=== PATIENT | female | born 1940 | race Caucasian/White ===

== ENCOUNTER 2017-05-04 09:29 | Emergency (ER) | payer MEDICARE, BC ==
[2017-05-04 09:37] VITALS: BP 172/74; PULSE 74; O2SAT 97
[2017-05-04] MEDS ORDERED: XYLOCAINE 1% HCL 20 ML MDV IJ ONE (09:42)
[2017-05-04] MEDS ORDERED: Adacel Vial IM ONE ×2 (09:42→09:48)
[2017-05-04] MEDS ORDERED: BACIGUENT PACKET TP ONE (09:42)
[2017-05-04] MEDS ORDERED: BACIGUENT PACKET ONE (09:47)
[2017-05-04] MEDS ORDERED: XYLOCAINE 1% HCL 20 ML MDV ONE (09:47)
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
--- NOTE | 2017-05-04 11:35 | XRAY ---
Exam: 3 view right third finger exam from 05/04/2017. Comparison: None. Indication: Shut third finger in garage door. Findings: AP, oblique, and lateral radiographs of the right third finger were obtained. I see a mildly comminuted fracture of the tuft of the distal phalanx of the right third finger without significant displacement or malalignment. Surrounding soft tissue swelling is evident. No radiopaque soft tissue foreign body is seen. Some mild osteoarthritic changes are seen affecting both the DIP and PIP joints of the right third finger. Impression: 1. Mildly comminuted, nondisplaced fracture of the tuft of the distal phalanx of the right third finger. Surrounding soft tissue swelling is evident. No radiopaque soft tissue foreign body is seen. 2. Mild osteoarthritic changes are seen of both the DIP and PIP joints of the right third finger. There is also some mild focal soft tissue prominence overlying the radial aspect of the PIP joint. Incidentally, there is a tiny curvilinear calcific density at this latter level on the AP image, but this does not represent the site of injury. Therefore, this is presumably old.
== END 2017-05-04 10:50 | disposition home or self-care (01) ==
LOC: ED 09:29
PROC: 0HQFXZZ Repair Right Hand Skin, External Approach (ICD-10-PCS; principal; 2017-05-04)
DX: S61.212A Laceration without foreign body of right middle finger without damage to nail, initial encounter (principal); S62.632A Displaced fracture of distal phalanx of right middle finger, initial encounter for closed fracture; X58.XXXA Exposure to other specified factors, initial encounter
CPT/HCPCS: 12002; 73140; 90471; 90715; 96372; 99283; 99284; A9270-GY

== ENCOUNTER 2024-02-26 15:53 | Emergency (ER) | payer MEDICARE, BC ==
[2024-02-26] MEDS ORDERED: Sodium Chloride 0.9% 1000 ML 1,000 ML ONE (16:16)
[2024-02-26] MEDS ORDERED: Zofran 4 MG/2 ML VIAL ONE (16:16)
[2024-02-26] MEDS: Zofran 4 MG/2 ML VIAL IV ONE (16:19)
[2024-02-26] MEDS: Sodium Chloride 0.9% 1000 ML 1,000 ML IV STA (16:19)
[2024-02-26] MEDS ORDERED: SUBLIMAZE 100 MCG/2 ML ONE (16:23)
[2024-02-26] MEDS: SUBLIMAZE 100 MCG/2 ML IV ONE (16:25)
[2024-02-26 16:43] LABS: Absolute Neutrophil Ct (ANC) 16.57 x10^3/uL (1.4-6.9); BASOPHIL % 0.2 % (0.0-0.4); Basophil (Absolute #) 0.03 x10^3/uL (0-0.4); Eosinophil % 0.3 % (0.00-5.0); Eosinophil (Absolute #) 0.05 x10^3/uL (0-0.5); Hematocrit 49.7 % (35-47); Hemoglobin 16.7 g/dL (12.0-16.0); IMMATURE GRAN % 0.5 % (0.00-0.4); Lymphocyte (Absolute #) 1.43 x10^3/uL (1.0-4.6); Lymphocytes % 7.4 % (24.0-44.0); Mean Cell Volume 88.9 fL (78-100); Mean Corpuscular Hemoglobin 29.9 pg (26-32); Mean Corpuscular Hgb Concent. 33.6 g/dL (32-36); Mean Platelet Volume 9.9 fL (7.5-11.0); Monocyte (Absolute #) 1.08 x10^3/uL (0.0-1.3); Monocytes % 5.6 % (0.0-12.0); Platelet Count 191 x10^3/uL (150-450); Red Blood Count 5.59 x10^6/uL (4.1-5.4); Red Cell Distribution Width 11.9 % (11.5-14.0); White Blood Count 19.3 x10^3/uL (4.0-10.5)
--- NOTE | 2024-02-26 16:52 | XRAY ---
Indication: Chest pain. Comparison: None Portable chest demonstrates minimal left mid to lower lung subsegmental atelectasis/scarring and tiny right base calcified granuloma. Remaining heart and lungs unremarkable. Bony thorax intact with osteopenia, mild degenerative changes, and minimal dextroscoliosis. Impression: Nonacute chest with chronic features.
[2024-02-26 17:01] LABS: ALBUMIN 4.5 g/dL (3.5-5.0); ANION GAP 13.6 MEQ/L (5-15); BILIRUBIN,TOTAL 0.8 mg/dL (0.2-1.3); Calcium 9.8 mg/dL (8.4-10.2); Creatinine 1 0.61 mg/dL (0.52-1.04); EST GLOMERULAR FILTRATION RATE 89.8 ML/MIN; Potassium 3.5 mmol/L (3.5-5.1); Total Protein 7.6 g/dL (6.3-8.2)
--- NOTE | 2024-02-26 17:06 | ERPHSYRPT ---
- History of Present Illness Time Seen by Provider: 02/26/24 16:15 Historian: patient, family Patient Subjective Stated Complaint: C/O lower abdominal pain that started around 12noon today. Triage Nursing Assessment: Patient arrived by ambulance. She is diaphoretic. Alert and oriented. No SOB. ORO WNL. Patient holding her left lower abdomen; states it's her entire lower abdomen not just the left side. Physician History: Patient is a 89-year-old white female who presents with a complaint of lower abdominal pain today which started fairly suddenly at noon. She has had at least 4 episodes of severe nausea and vomiting. The pain does localize fairly well to the lower quadrant she also says she has not had a bowel movement in 4 days.Current medical care involves hypertension and hypothyroidism and diabetes. Activities at Onset: none Quality: cramping Abdominal Pain Onset Location: RLQ, LLQ Pain Radiation: no radiation Severity of Pain-Max: moderate Severity of Pain-Current: moderate Modifying Factors: Improves With: vomiting Associated Symptoms: nausea, vomiting Allergies/Adverse Reactions: No Known Drug Allergies Allergy (Verified 02/26/24 16:05) Home Medications: Amlodipine Besylate 5 mg [Norvasc 5 mg] 10 mg PO DAILY 02/26/24 [History] Carvedilol [Coreg ] See Rx Instructions .ROUTE .COMPLEX 02/26/24 [History] Insulin Degludec [Tresiba Flextouch U-200] 30 unit SQ DAILY 02/26/24 [History] Levothyroxine Sodium 88 Mcg [Synthroid 88 Mcg] 88 mcg PO DAILY 02/26/24 [History] Lisinopril/Hydrochlorothiazide [Lisinopril-Hctz 20-25 mg Tab] 1 tab PO DAILY 02/26/24 [History] Hx Tetanus, Diphtheria Vaccination/Date Given: Yes Hx Influenza Vaccination/Date Given: Yes Hx Pneumococcal Vaccination/Date Given: Yes Immunizations Up to Date: Yes Travel Risk - International Travel Have you traveled outside of the country in past 3 weeks: No - Emerging Infectious Disease Are you exhibiting symptoms associated with any current EIDs: Yes Symptoms: Abdominal Pain - Review of Systems Constitutional: No Fever, No Chills Eyes: No Symptoms Ears, Nose, & Throat: No Symptoms Respiratory: No Cough, No Dyspnea Cardiac: No Chest Pain, No Edema, No Syncope Abdominal/Gastrointestinal: Abdominal Pain, Nausea, Vomiting, No Diarrhea Genitourinary Symptoms: No Dysuria Musculoskeletal: No Back Pain, No Neck Pain Skin: No Rash Neurological: No Dizziness, No Focal Weakness, No Sensory Changes Psychological: No Symptoms Endocrine: No Symptoms All Other Systems: Reviewed and Negative - Past Medical History Pertinent Past Medical History: Yes Cardiac History: Congenital Heart Disease, High Cholesterol, Hypertension, Myocardial Infarction ([place]) Endocrine Medical History: Diabetes Type II 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 - Past Surgical History Past Surgical History: Yes Cardiac: Cardiac Catheterization, Cardiac Stent Gastrointestinal: Appendectomy Other Surgical History: "OVARIAN STUFF" - Social History Smoking Status: Never smoker Exposure to second hand smoke: No Drug Use: none Patient Lives Alone: No - Social Determinants of Health Will the patient participate in the screening: Yes Do you worry about a steady place to live?: No Do you have any problems with any of the following?: No known problems In the past 12 months,have you had to go without utilities?: No Transportation Issues: No Has anyone in your support network made you feel unsafe?: No Have you or anyone in your house had to go without enough: No - Nursing Vital Signs Nursing Vital Signs: Initial Vital Signs Pulse Rate 65 02/26/24 15:57 Respiratory Rate 23 02/26/24 15:57 Blood Pressure 123/62 02/26/24 15:57 O2 Sat by Pulse Oximetry 98 02/26/24 15:57 Pain Scale Pain Intensity 0 - Physical Exam General Appearance: moderate distress, alert Eye Exam: PERRL/EOMI, eyes nml inspection Ears, Nose, Throat Exam: normal ENT inspection, pharynx normal, moist mucous membranes Neck Exam: normal inspection, non-tender, supple, full range of motion Respiratory Exam: normal breath sounds, lungs clear, No respiratory distress Cardiovascular Exam: regular rate/rhythm, normal heart sounds Gastrointestinal/Abdomen Exam: soft, tenderness, guarding, rebound, No mass Back Exam: normal inspection, normal range of motion, No CVA tenderness, No vertebral tenderness Extremity Exam: normal inspection, normal range of motion, pelvis stable Neurologic Exam: alert, oriented x 3, cooperative, normal mood/affect, nml cerebellar function, sensation nml, No motor deficits Skin Exam: normal color, warm, dry SpO2: 98 - Course Nursing assessment & vital signs reviewed: Yes EKG Interpreted by Me: RATE (64), Sinus Rhythm, Other (Poor R wave progression) - Radiology Exams Chest X-ray Interpretation: Reviewed by me - CT Exams Abdomen/Pelvis CT Interpretation: Other (And incidental finding of lump in right breast. Diagnosed as left colitis) Ordered Tests: Active Orders 24 hr Category Date Time Status EKG-ER Only STAT Care 02/26/24 16:09 Active IV Insertion STAT Care 02/26/24 16:09 Active NPO (ED) STAT Care 02/26/24 16:09 Active ABDOMEN AND PELVIS W CONTRAST [CT] Stat Exams 02/26/24 16:10 Taken CHEST 1 VIEW (PORTABLE) Stat Exams 02/26/24 16:10 Completed CBC W DIFF Stat Lab 02/26/24 16:35 Completed CMP Stat Lab 02/26/24 16:35 Completed CULTURE,URINE Stat Lab 02/26/24 18:09 Received LIPASE Stat Lab 02/26/24 16:35 Completed Lactic Acid Stat Lab 02/26/24 16:20 Completed PROTIME WITH INR Stat Lab 02/26/24 16:35 Completed TROPONIN Q4H Lab 02/26/24 16:35 Completed TROPONIN Q4H Lab 02/26/24 20:15 Ordered TROPONIN Q4H Lab 02/27/24 00:15 Ordered UA W/RFX UR CULTURE Stat Lab 02/26/24 18:09 Completed Medication Summary Discontinued Medications Generic Name Dose Route Start Last Admin Trade Name Freq PRN Reason Stop Dose Admin Fentanyl Citrate 50 mcg 02/26/24 16:09 02/26/24 16:25 Fentanyl Citrate 100 Mcg/2 Ml* Vial IV 02/26/24 16:10 50 mcg STAT ONE Administration Fentanyl Citrate Confirm 02/26/24 16:23 Fentanyl Citrate 100 Mcg/2 Ml* Vial Administered 02/26/24 16:24 Dose 100 mcg .ROUTE .STK-MED ONE Sodium Chloride 1,000 mls @ 999 mls/hr 02/26/24 16:09 02/26/24 17:21 Sodium Chloride 0.9% 1000 Ml IV 02/26/24 17:09 Infused .Q1H1M STA Infusion Sodium Chloride Confirm 02/26/24 16:16 Sodium Chloride 0.9% 1000 Ml Administered 02/26/24 16:17 Dose 1,000 mls @ ud .ROUTE .STK-MED ONE Ondansetron HCl 4 mg 02/26/24 16:09 02/26/24 16:19 Ondansetron Hcl 4 Mg/2 Ml Vial IV 02/26/24 16:10 4 mg STAT ONE Administration Ondansetron HCl Confirm 02/26/24 16:16 Ondansetron Hcl 4 Mg/2 Ml Vial Administered 02/26/24 16:17 Dose 4 mg .ROUTE .[email or web address] ONE Lab/Rad Data: Laboratory Result Diagrams 02/26/24 16:35 02/26/24 16:35 Laboratory Results 02/26/24 02/26/24 02/26/24 Range/Units 18:09 16:35 16:35 WBC (4.0-10.5) x10^3/uL RBC (4.1-5.4) x10^6/uL Hgb (12.0-16.0) g/dL Hct (35-47) % MCV (78-100) fL MCH (26-32) pg MCHC (32-36) g/dL RDW (11.5-14.0) % Plt Count (150-450) x10^3/uL MPV (7.5-11.0) fL Gran % (36.0-66.0) % Immature Gran % (Auto) (0.00-0.4) % Nucleat RBC Rel Count (0.00-0.1) % Eos # (Auto) (0-0.5) x10^3/uL Immature Gran # (Auto) (0.00-0.03) x10^3u/L Absolute Lymphs (auto) (1.0-4.6) x10^3/uL Absolute Monos (auto) (0.0-1.3) x10^3/uL Absolute Nucleated RBC (0.00-0.01) x10^3u/L Lymphocytes % (24.0-44.0) % Monocytes % (0.0-12.0) % Eosinophils % (0.00-5.0) % Basophils % (0.0-0.4) % Absolute Granulocytes (1.4-6.9) x10^3/uL Basophils # (0-0.4) x10^3/uL PT 10.7 (9.4-12.5) SECONDS INR 0.98 (0.8-3.0) Sodium (135-145) mmol/L Potassium (3.5-5.1) mmol/L Chloride (98-107) mmol/L Carbon Dioxide (22-30) mmol/L Anion Gap (5-15) MEQ/L BUN (7-17) mg/dL Creatinine (0.52-1.04) mg/dL Estimated GFR ML/MIN Glucose (74-106) mg/dL Lactic Acid (0.4-2.0) Calcium (8.4-10.2) mg/dL Total Bilirubin (0.2-1.3) mg/dL AST (14-36) U/L ALT (0-35) U/L Alkaline Phosphatase (38-126) U/L Troponin I < 0.012 (0.000-0.033) ng/mL Serum Total Protein (6.3-8.2) g/dL Albumin (3.5-5.0) g/dL Lipase (23-300) U/L Urine Color Yellow (Yellow) Urine Appearance Clear (Clear) Urine pH 7.0 (4.6-8.0) Ur Specific Ramona 1.020 (1.005-1.030) Urine Protein Negative (Negative) Urine Glucose (UA) Negative (Negative) mg/dL Urine Ketones Negative (Negative) Urine Blood Negative (Negative) Urine Nitrite Negative (Negative) Urine Bilirubin Negative (Negative) Urine Urobilinogen 1.0 A (0.2) mg/dL Ur Leukocyte Esterase Small A (Negative) U Hyaline Cast (Auto) NONE SEEN (0-2) /LPF Urine Microscopic RBC 0-2 (0-5) /HPF Urine Microscopic WBC 11-20 A (0-5) /HPF Ur Epithelial Cells None Seen (None Seen) /HPF Urine Bacteria Few A (None Seen) /HPF Urine Culture Reflexed YES (NO) 02/26/24 02/26/24 02/26/24 Range/Units 16:35 16:35 16:20 WBC 19.3 H (4.0-10.5) x10^3/uL RBC 5.59 H (4.1-5.4) x10^6/uL Hgb 16.7 H (12.0-16.0) g/dL Hct 49.7 H (35-47) % MCV 88.9 (78-100) fL MCH 29.9 (26-32) pg MCHC 33.6 (32-36) g/dL RDW 11.9 (11.5-14.0) % Plt Count 191 (150-450) x10^3/uL MPV 9.9 (7.5-11.0) fL Gran % 86.0 H (36.0-66.0) % Immature Gran % (Auto) 0.5 H (0.00-0.4) % Nucleat RBC Rel Count 0.0 (0.00-0.1) % Eos # (Auto) 0.05 (0-0.5) x10^3/uL Immature Gran # (Auto) 0.10 H (0.00-0.03) x10^3u/L Absolute Lymphs (auto) 1.43 (1.0-4.6) x10^3/uL Absolute Monos (auto) 1.08 (0.0-1.3) x10^3/uL Absolute Nucleated RBC 0.00 (0.00-0.01) x10^3u/L Lymphocytes % 7.4 L (24.0-44.0) % Monocytes % 5.6 (0.0-12.0) % Eosinophils % 0.3 (0.00-5.0) % Basophils % 0.2 (0.0-0.4) % Absolute Granulocytes 16.57 H (1.4-6.9) x10^3/uL Basophils # 0.03 (0-0.4) x10^3/uL PT (9.4-12.5) SECONDS INR (0.8-3.0) Sodium 141 (135-145) mmol/L Potassium 3.5 (3.5-5.1) mmol/L Chloride 104 (98-107) mmol/L Carbon Dioxide 26 (22-30) mmol/L Anion Gap 13.6 (5-15) MEQ/L BUN 16 (7-17) mg/dL Creatinine 0.61 (0.52-1.04) mg/dL Estimated GFR 89.8 ML/MIN Glucose 183 H (74-106) mg/dL Lactic Acid 1.6 (0.4-2.0) Calcium 9.8 (8.4-10.2) mg/dL Total Bilirubin 0.80 (0.2-1.3) mg/dL AST 25 (14-36) U/L ALT 19 (0-35) U/L Alkaline Phosphatase 71 (38-126) U/L Troponin I (0.000-0.033) ng/mL Serum Total Protein 7.6 (6.3-8.2) g/dL Albumin 4.5 (3.5-5.0) g/dL Lipase 228 (23-300) U/L Urine Color (Yellow) Urine Appearance (Clear) Urine pH (4.6-8.0) Ur Specific Ramona (1.005-1.030) Urine Protein (Negative) Urine Glucose (UA) (Negative) mg/dL Urine Ketones (Negative) Urine Blood (Negative) Urine Nitrite (Negative) Urine Bilirubin (Negative) Urine Urobilinogen (0.2) mg/dL Ur Leukocyte Esterase (Negative) U Hyaline Cast (Auto) (0-2) /LPF Urine Microscopic RBC (0-5) /HPF Urine Microscopic WBC (0-5) /HPF Ur Epithelial Cells (None Seen) /HPF Urine Bacteria (None Seen) /HPF Urine Culture Reflexed (NO) - Progress Progress: improved Medical Desision Making - Diagnostic Testing Diagnostic test were ordered, analyzed, and reviewed by me: Yes Radiological Interpretation: Reviewed by me - Risk of complications Low Risk: Low risk of morbidity from additional dx testing or treatment - Departure Departure Disposition: Home Clinical Impression: Colitis Condition: Stable Critical Care Time: No Referrals: HADLEY ROCHA [Primary Care Provider] - Follow up/PCP as directed Instructions: Colitis, Inflammatory Bowel Disease ([place]) Additional Instructions: Clear liquid diet for 48 hours. Prescriptions: Ondansetron ODT 4 MG [Zofran Odt 4 mg] 4 mg PO Q6H PRN PRN #10 tablet PRN Reason: Vomiting Metronidazole 500 mg [Flagyl 500 MG] 500 mg PO BID 10 Days #20 tablet
[2024-02-26 17:11] LABS: INR 0.98 (0.8-3.0); PROTIME 10.7 SECONDS (9.4-12.5)
[2024-02-26 18:27] LABS: Appearance Clear (Clear); Bacteria Few /HPF (None Seen); Bilirubin Negative (Negative); Blood Negative (Negative); Epithelial Cells None Seen /HPF (None Seen); Glucose, Urine Negative (Negative); Hyaline Casts NONE SEEN /LPF (0-2); Ketones Negative (Negative); Leukocyte Esterase Small (Negative); Nitrite Negative (Negative); Protein,Urine Dip Negative (Negative); RBC 0-2 /HPF (0-5)
[2024-02-26 18:31] LABS: ADD URINE CULTURE? YES (NO)
[2024-02-26 19:05] VITALS: O2SAT 98
[2024-02-26 19:06] VITALS: BP 123/95; PULSE 79; RESP 17
--- NOTE | 2024-02-27 08:37 | XRAY ---
Indication: Pain. Multiple contiguous axial images obtained through the abdomen and pelvis using 80 cc Isovue 370 contrast. Comparison: None Lung bases clear with incidental right base calcified granuloma. Heart is not enlarged. Small hiatal hernia. Visualized distal esophagus is mildly fluid distended favoring GERD. Incidental incompletely visualized 1.7 x 2.7 cm right breast mass. Noncontrasted stomach and bowel loops appear nonobstructed. Appendectomy reported. There is moderate diffuse scattered colonic fecal debris throughout and scattered sigmoid diverticulosis. Distal transverse and descending colon demonstrates moderate circumduction wall thickening with pericolonic stranding favoring colitis. No free fluid/air. Previous cholecystectomy and hysterectomy. Both kidneys enhance and excrete with multiple bilateral renal cysts, largest right kidney measuring 2.5 cm. Peripheral right lobe liver demonstrates 5 mm cyst. Remaining liver, pancreas, spleen, adrenal glands, kidneys, ureters, and bladder are unremarkable. Moderate scattered aortoiliac calcifications are noted AAA or pathologic retroperitoneal lymphadenopathy. Osseous structures intact with osteopenia, moderate multilevel thoracolumbar degenerative spondylosis, 1 cm anterior spondylolisthesis L4 on L5, and mild levorotoscoliosis centered at L2. Tiny fatty left inguinal hernia. Impression: 1. CT findings favoring colitis involving distal transverse and descending colon. No complications. 2. Small hiatal hernia with GERD. 3. Moderate diffuse fecal stasis. 4. Incompletely visualized right breast mass. Mammography may yield further information. 5. Chronic findings including sigmoid diverticulosis, bilateral renal cysts, hepatic cyst, arteriosclerotic disease, fatty left inguinal hernia, chronic bony findings, and old granulomatous disease.
== END 2024-02-26 19:17 | disposition home or self-care (01) ==
LOC: ED 15:53
DX: K52.9 Noninfective gastroenteritis and colitis, unspecified (principal); R11.2 Nausea with vomiting, unspecified; R10.30 Lower abdominal pain, unspecified; I10 Essential (primary) hypertension; E11.9 Type 2 diabetes mellitus without complications; E78.5 Hyperlipidemia, unspecified; Z79.4 Long term (current) use of insulin; Z79.899 Other long term (current) drug therapy
CPT/HCPCS: 36000; 36415; 71045; 74177; 80053; 81001; 83605; 83690; 84484; 85025; 85610; 87077; 87086; 87186; 93005; 96374; 96375; 99284; J2405; J3010

== ENCOUNTER 2024-11-04 13:28 | Emergency (ER) | payer MEDICARE, BC ==
[2024-11-04 13:38] VITALS: TEMP 97.5; O2SAT 97
[2024-11-04 14:10] LABS: Appearance Clear (Clear); Bacteria None Seen /HPF (None Seen); Bilirubin Small (Negative); Blood Negative (Negative); Epithelial Cells None Seen /HPF (None Seen); Glucose, Urine Negative (Negative); Ketones Trace (Negative); Leukocyte Esterase Moderate (Negative); Nitrite Negative (Negative); Protein,Urine Dip Trace (Negative); RBC 0-2 /HPF (0-5); Specific Gravity 1.015 (1.005-1.030)
[2024-11-04 14:17] LABS: Absolute Neutrophil Ct (ANC) 14.12 x10^3/uL (1.56-6.13); BASOPHIL % 0.1 % (0.1-1.2); Basophil (Absolute #) 0.02 x10^3/uL (0.01-0.08); Eosinophil % 0.2 % (0.7-5.8); Eosinophil (Absolute #) 0.03 x10^3/uL (0.04-0.36); Hematocrit 46.1 % (34.1-44.9); Hemoglobin 15.6 g/dL (11.2-15.7); IMMATURE GRAN # 0.08 x10^3u/L (0.001-0.031); IMMATURE GRAN % 0.5 % (0.001-0.429); Lymphocyte (Absolute #) 1.13 x10^3/uL (1.18-3.74); Lymphocytes % 6.9 % (19.3-51.7); Mean Cell Volume 87.8 fL (79.4-94.8); Mean Corpuscular Hemoglobin 29.7 pg (25.6-32.2); Mean Corpuscular Hgb Concent. 33.8 g/dL (32.2-35.5); Monocyte (Absolute #) 0.98 x10^3/uL (0.24-0.86); Neutrophil % 86.3 % (34.0-71.1); Platelet Count 227 x10^3/uL (182-369); Red Blood Count 5.25 x10^6/uL (3.93-5.22); Red Cell Distribution Width 12.7 % (11.7-14.4); White Blood Count 16.4 x10^3/uL (3.98-10.04)
[2024-11-04 14:37] LABS: ALBUMIN 4.3 g/dL (3.5-5.0); ANION GAP 9.6 MEQ/L (5-15); BILIRUBIN,TOTAL 0.6 mg/dL (0.2-1.3); Calcium 9.3 mg/dL (8.4-10.2); Creatinine 1 0.68 mg/dL (0.52-1.04); EST GLOMERULAR FILTRATION RATE 86.9 ML/MIN; Potassium 3.8 mmol/L (3.5-5.1); Total Protein 7.1 g/dL (6.3-8.2)
[2024-11-04] MEDS ORDERED: ROCEPHIN 1 GM / 100 ML NaCl 1 GM/100 ML IVPB IV ONE (16:18)
[2024-11-04] MEDS: ROCEPHIN 1 GM / 100 ML NaCl 1 GM/100 ML IVPB IV ONE (16:24)
--- NOTE | 2024-11-04 16:37 | XRAY ---
Indication: Abdomen pain. Multiple contiguous axial images obtained through the abdomen and pelvis using 80 cc Isovue 370 contrast. Comparison: February 26, 2024 Lung bases again demonstrates minimal dependent atelectasis and tiny right base calcified granuloma. No infiltrate or effusion. Heart not enlarged. Stable small hiatal hernia. Noncontrasted stomach and bowel loops appear nonobstructed. Again mild diffuse scattered colonic fecal debris, less than before. Descending colon again demonstrates minimal circumferential wall thickening with pericolonic stranding favoring colitis. No free fluid/air. Again incidental tiny right lobe hepatic cyst, multiple bilateral renal cysts, cholecystectomy, and hysterectomy. Remaining liver, pancreas, spleen, adrenal glands, kidneys, ureters, and bladder are unremarkable. There remains moderate scattered aortoiliac calcifications. No AAA or pathological retroperitoneal lymphadenopathy. Osseous structures intact again with osteopenia, moderate degenerative changes throughout the thoracolumbar spine, grade 1 L4 listhesis, and mild levoscoliosis. Stable tiny fatty left inguinal hernia. Impression: 1. Recurrent non-complicated mild descending colitis. 2. Again mild diffuse fecal stasis. 3. Chronic findings including hiatal hernia, bilateral renal cysts, hepatic cyst, arteriosclerotic disease, fatty left inguinal hernia, chronic bony findings, and old granulomatous disease.
[2024-11-04] MEDS ORDERED: FLAGYL 500 MG IVPB 500 MG/100 ML BAG IV ONE (17:44)
[2024-11-04] MEDS: FLAGYL 500 MG IVPB 500 MG/100 ML BAG IV STA (17:47)
--- NOTE | 2024-11-04 18:21 | ERPHSYRPT ---
- History of Present Illness Time Seen by Provider: 11/04/24 13:35 Source: patient Exam Limitations: clinical condition Patient Subjective Stated Complaint: Abdominal pain Triage Nursing Assessment: Patient brought into ED per EMS and transferred to bed with assist of 2. Patient A+O X 3. Patient's skin pink, warm and dry. Patient complains of abdominal pain that started this am 9/10. Patient states she is constipated and hasn't had a good BM in a few days. Abdomen soft and round with BS X 4. Timing/Duration: today Severity: mild Associated Symptoms: abdominal pain Allergies/Adverse Reactions: No Known Drug Allergies Allergy (Verified 11/04/24 13:34) Home Medications: Amlodipine Besylate 5 mg [Norvasc 5 mg] 10 mg PO DAILY 02/26/24 [History] Carvedilol [Coreg ] See Rx Instructions .ROUTE .COMPLEX 02/26/24 [History] Insulin Degludec [Tresiba Flextouch U-200] 30 unit SQ DAILY 02/26/24 [History] Levothyroxine Sodium 88 Mcg [Synthroid 88 Mcg] 88 mcg PO DAILY 02/26/24 [History] Lisinopril/Hydrochlorothiazide [Lisinopril-Hctz 20-25 mg Tab] 1 tab PO DAILY 02/26/24 [History] Hx Tetanus, Diphtheria Vaccination/Date Given: Yes Hx Influenza Vaccination/Date Given: No Hx Pneumococcal Vaccination/Date Given: Yes Immunizations Up to Date: Yes Travel Risk - International Travel Have you traveled outside of the country in past 3 weeks: No - Emerging Infectious Disease Are you exhibiting symptoms associated with any current EIDs: No Symptoms: Abdominal Pain - Review of Systems Constitutional: No Symptoms Eyes: No Symptoms Ears, Nose, & Throat: No Symptoms Respiratory: No Symptoms Cardiac: No Symptoms Abdominal/Gastrointestinal: Abdominal Pain Genitourinary Symptoms: No Symptoms Musculoskeletal: No Symptoms Skin: No Symptoms Neurological: No Symptoms Psychological: No Symptoms - Past Medical History Pertinent Past Medical History: Yes Cardiac History: Congenital Heart Disease, High Cholesterol, Hypertension, Myocardial Infarction ([place]) Endocrine Medical History: Diabetes Type II Other Medical History: Articulation Officer: Dr. Yoni Rocha - Past Surgical History Past Surgical History: Yes Cardiac: Cardiac Catheterization, Cardiac Stent Gastrointestinal: Appendectomy Other Surgical History: "OVARIAN STUFF" - Social History Smoking Status: Never smoker Exposure to second hand smoke: No Drug Use: none Patient Lives Alone: No - Social Determinants of Health Will the patient participate in the screening: Yes Do you worry about a steady place to live?: No Do you have any problems with any of the following?: No known problems In the past 12 months,have you had to go without utilities?: No Transportation Issues: No Has anyone in your support network made you feel unsafe?: No Have you or anyone in your house had to go without enough: No - Nursing Vital Signs Nursing Vital Signs: Initial Vital Signs Temperature 97.5 F 11/04/24 13:34 Pulse Rate 86 11/04/24 13:34 Respiratory Rate 20 11/04/24 13:34 Blood Pressure 114/64 11/04/24 13:34 O2 Sat by Pulse Oximetry 97 11/04/24 13:34 Pain Scale Pain Intensity 9 - Physical Exam General Appearance: no apparent distress Eye Exam: PERRL/EOMI Ears, Nose, Throat Exam: normal ENT inspection Respiratory Exam: normal breath sounds Cardiovascular Exam: regular rate/rhythm Gastrointestinal/Abdomen Exam: tenderness (Patient is tender in the lower quadrants) SpO2: 97 Ordered Tests: Active Orders 24 hr Category Date Time Status ABDOMEN AND PELVIS W CONTRAST [CT] Stat Exams 11/04/24 13:30 Completed CBC W DIFF Stat Lab 11/04/24 14:17 Completed CMP Stat Lab 11/04/24 14:17 Completed CULTURE,URINE Stat Lab 11/04/24 13:46 Received LIPASE Stat Lab 11/04/24 14:17 Completed UA W/RFX UR CULTURE Stat Lab 11/04/24 13:46 Completed Medication Summary Discontinued Medications Generic Name Dose Route Start Last Admin Trade Name Freq PRN Reason Stop Dose Admin Ceftriaxone Sodium 1 gm in 100 mls @ 200 mls/hr 11/04/24 15:33 11/04/24 17:07 Rocephin 1 Gm / 100 Ml Nacl IV 11/04/24 16:02 Infused STAT ONE Infusion Ceftriaxone Sodium Confirm 11/04/24 16:18 Rocephin 1 Gm / 100 Ml Nacl Administered 11/04/24 16:19 Dose 1 gm in 100 mls @ ud IV .STK-MED ONE Metronidazole 500 mg in 100 mls @ 200 mls/hr 11/04/24 17:01 11/04/24 17:47 Flagyl 500 Mg Ivpb IV 11/04/24 17:30 200 mls/hr STAT STA 200 mls/hr Administration Metronidazole Confirm 11/04/24 17:44 Flagyl 500 Mg Ivpb Administered 11/04/24 17:45 Dose 500 mg in 100 mls @ ud IV .K-MED ONE Lab/Rad Data: Laboratory Result Diagrams 11/04/24 14:17 11/04/24 14:17 Laboratory Results 11/04/24 11/04/24 11/04/24 Range/Units 14:17 14:17 13:46 WBC 16.4 H (3.98-10.04) x10^3/uL RBC 5.25 H (3.93-5.22) x10^6/uL Hgb 15.6 (11.2-15.7) g/dL Hct 46.1 H (34.1-44.9) % MCV 87.8 (79.4-94.8) fL MCH 29.7 (25.6-32.2) pg MCHC 33.8 (32.2-35.5) g/dL RDW 12.7 (11.7-14.4) % Plt Count 227 (182-369) x10^3/uL MPV 10.0 (9.4-12.3) fL Gran % 86.3 H (34.0-71.1) % Immature Gran % (Auto) 0.5 H (0.001-0.429) % Nucleat RBC Rel Count 0.0 (0.00-0.2) % Eos # (Auto) 0.03 L (0.04-0.36) x10^3/uL Immature Gran # (Auto) 0.08 H (0.001-0.031) x10^3u/L Absolute Lymphs (auto) 1.13 L (1.18-3.74) x10^3/uL Absolute Monos (auto) 0.98 H (0.24-0.86) x10^3/uL Absolute Nucleated RBC 0.00 (0.00-0.012) x10^3u/L Lymphocytes % 6.9 L (19.3-51.7) % Monocytes % 6.0 (4.7-12.5) % Eosinophils % 0.2 L (0.7-5.8) % Basophils % 0.1 (0.1-1.2) % Absolute Granulocytes 14.12 H (1.56-6.13) x10^3/uL Basophils # 0.02 (0.01-0.08) x10^3/uL Sodium 139 (135-145) mmol/L Potassium 3.8 (3.5-5.1) mmol/L Chloride 101 (98-107) mmol/L Carbon Dioxide 32 H (22-30) mmol/L Anion Gap 9.6 (5-15) MEQ/L BUN 17 (7-17) mg/dL Creatinine 0.68 (0.52-1.04) mg/dL Estimated GFR 86.9 ML/MIN Glucose 146 H (74-106) mg/dL Calcium 9.3 (8.4-10.2) mg/dL Total Bilirubin 0.60 (0.2-1.3) mg/dL AST 30 (14-36) U/L ALT 18 (0-35) U/L Alkaline Phosphatase 75 (38-126) U/L Serum Total Protein 7.1 (6.3-8.2) g/dL Albumin 4.3 (3.5-5.0) g/dL Lipase 104 (23-300) U/L Urine Color Dark Yellow A (Yellow) Urine Appearance Clear (Clear) Urine pH 7.0 (4.6-8.0) Ur Specific [place] 1.015 (1.005-1.030) Urine Protein Trace A (Negative) Urine Glucose (UA) Negative (Negative) mg/dL Urine Ketones Trace A (Negative) Urine Blood Negative (Negative) Urine Nitrite Negative (Negative) Urine Bilirubin Small A (Negative) Urine Urobilinogen 1.0 A (0.2) mg/dL Ur Leukocyte Esterase Moderate A (Negative) U Hyaline Cast (Auto) 3-5 A (0-2) /LPF Urine Microscopic RBC 0-2 (0-5) /HPF Urine Microscopic WBC 11-20 A (0-5) /HPF Ur Epithelial Cells None Seen (None Seen) /HPF Urine Bacteria None Seen (None Seen) /HPF Urine Culture Reflexed YES (NO) - Progress Progress Note: Patient was seen and evaluated for abdominal pain labs and CT was ordered CT s uggestive of colitis she was initially given Rocephin for treatment of UTI, then Flagyl was ordered. Patient was informed of the need for admission she is agreeable all risk and benefits explained she is of sound medical decision-making capability. Nursing staff was present during this conversation I was then notified by the nursing staff that patient does not want to be admitted and wanted to leave AMA with her daughter. I did not get a chance to talk to her before she left 11/04/24 18:14 Medical Desision Making - Discussion of managment Agreed on:: decision to admit - Departure Departure Disposition: AMA Clinical Impression: Colitis, Acute abdominal pain Condition: Stable Critical Care Time: No Referrals: HADLEY ROCHA [Primary Care Provider] - Follow up/PCP as directed Prescriptions: Ciprofloxacin [Cipro 500 MG] 500 mg PO BID #14 tablet Levofloxacin [Levaquin 500 MG Tablet] 500 mg PO DAILY #7 tablet
[2024-11-04 18:32] VITALS: BP 110/60; PULSE 80; RESP 19
== END 2024-11-04 18:35 | disposition left against medical advice (07) ==
LOC: ED 13:28
DX: K52.9 Noninfective gastroenteritis and colitis, unspecified (principal); R10.9 Unspecified abdominal pain; E78.5 Hyperlipidemia, unspecified; I10 Essential (primary) hypertension; E11.9 Type 2 diabetes mellitus without complications; Z79.4 Long term (current) use of insulin; Z79.899 Other long term (current) drug therapy
CPT/HCPCS: 36415; 74177; 80053; 81001; 83690; 85025; 87086; 96365; 96367; 99284; 99285; J0696

== ENCOUNTER 2025-01-11 12:57 | Emergency (ER) | payer MEDICARE, BC ==
[2025-01-11 13:19] VITALS: BP 114/76; PULSE 80; RESP 20; TEMP 97.9; O2SAT 95
--- NOTE | 2025-01-11 13:28 | ERPHSYRPT ---
- History of Present Illness Historian: patient Exam Limitations: no limitations Patient Subjective Stated Complaint: Constipation Triage Nursing Assessment: Patient brought into ED per EMS and transferred to bed with assist of 2. Patient A+O X 3. Patient's skin pink, warm and dry. Patient complains of constipation. Patient states she hadn't had a BM in 4 days and took Bisacodyl X 2 around 0500. Patient states she was sitting on toilet and having cramps. During triage patient requesting to go to restroom urgently and patient has large BM and states she feels a lot better. Abdomen soft and round with BS X 4. Physician History: Patient has been to the ER several times for constipation. She is having again. She has rectal pressure. She has not had a bowel movement for a while. She is having some pain in the rectum. She was on the toilet on April strain and had a near syncopal episode. She called EMS. They brought her in. She has a history of this it is not unusual for her. She took some Colace or something earlier in the morning. When she got here she had to go to the bathroom and immediately had a bowel movement and felt much better. Timing/Duration: day(s) (4) Allergies/Adverse Reactions: No Known Drug Allergies Allergy (Verified 01/11/25 13:01) Home Medications: Amlodipine Besylate 5 mg [Norvasc 5 mg] 10 mg PO DAILY 02/26/24 [History] Carvedilol [Coreg ] See Rx Instructions .ROUTE .COMPLEX 02/26/24 [History] Insulin Degludec [Tresiba Flextouch U-200] 30 unit SQ DAILY 02/26/24 [History] Levothyroxine Sodium 88 Mcg [Synthroid 88 Mcg] 88 mcg PO DAILY 02/26/24 [History] Lisinopril/Hydrochlorothiazide [Lisinopril-Hctz 20-25 mg Tab] 1 tab PO DAILY 02/26/24 [History] Hx Tetanus, Diphtheria Vaccination/Date Given: Yes Hx Influenza Vaccination/Date Given: No Hx Pneumococcal Vaccination/Date Given: Yes Immunizations Up to Date: Yes Travel Risk - International Travel Have you traveled outside of the country in past 3 weeks: No - Emerging Infectious Disease Are you exhibiting symptoms associated with any current EIDs: No Symptoms: Abdominal Pain - Review of Systems Constitutional: No Symptoms Eyes: No Symptoms Abdominal/Gastrointestinal: Constipation All Other Systems: Reviewed and Negative - Past Medical History Pertinent Past Medical History: Yes Cardiac History: Congenital Heart Disease, High Cholesterol, Hypertension, Myocardial Infarction ([place]) Endocrine Medical History: Diabetes Type II Other Medical History: Applied Statistician: Dr. Yoni Rocha - Past Surgical History Past Surgical History: Yes Cardiac: Cardiac Catheterization, Cardiac Stent Gastrointestinal: Appendectomy Other Surgical History: "OVARIAN STUFF" - Social History Smoking Status: Never smoker Exposure to second hand smoke: No Drug Use: none - Social Determinants of Health Will the patient participate in the screening: Yes Do you worry about a steady place to live?: No Do you have any problems with any of the following?: No known problems In the past 12 months,have you had to go without utilities?: No Transportation Issues: No Has anyone in your support network made you feel unsafe?: No Have you or anyone in your house had to go w/o enough food: No - Nursing Vital Signs Nursing Vital Signs: Initial Vital Signs Temperature 97.9 F 01/11/25 13:01 Pulse Rate 80 01/11/25 13:01 Respiratory Rate 20 01/11/25 13:01 Blood Pressure 114/76 01/11/25 13:01 O2 Sat by Pulse Oximetry 95 01/11/25 13:01 Pain Scale Pain Intensity 0 - Physical Exam General Appearance: no apparent distress Respiratory Exam: normal breath sounds Gastrointestinal/Abdomen Exam: soft, normal bowel sounds, No tenderness, No distention Neurologic Exam: alert, oriented x 3 Skin Exam: normal color, warm SpO2: 95 - Course Nursing assessment & vital signs reviewed: Yes - Progress Progress: improved Progress Note: 01/11/25 13:27 Patient had a bowel movement almost immediately after she got here. Her symptoms went away and she is feeling much better. No further workup is needed Medical Desision Making - Risk of complications Minimal Risk: Minimal risk of morbidity - Departure Departure Disposition: Home Clinical Impression: Constipation Condition: Stable Critical Care Time: No Referrals: HADLEY ROCHA [Primary Care Provider, INTERNAL MEDICINE] - Follow up/PCP as directed Instructions: Constipation, Adult (DC)
[2025-01-11 14:06] LABS: Hematocrit 46.6 % (34.1-44.9); Hemoglobin 15.3 g/dL (11.2-15.7); Mean Cell Volume 89.6 fL (79.4-94.8); Mean Corpuscular Hemoglobin 29.4 pg (25.6-32.2); Mean Corpuscular Hgb Concent. 32.8 g/dL (32.2-35.5); Platelet Count 208 x10^3/uL (182-369); Red Cell Distribution Width 12.4 % (11.7-14.4)
[2025-01-11 14:08] LABS: White Blood Count 25.7 x10^3/uL (3.98-10.04)
[2025-01-11 14:18] LABS: ALBUMIN 4.3 g/dL (3.5-5.0); ANION GAP 13.9 MEQ/L (5-15); BILIRUBIN,TOTAL 0.5 mg/dL (0.2-1.3); Calcium 9.3 mg/dL (8.4-10.2); Creatinine 1 0.65 mg/dL (0.52-1.04); EST GLOMERULAR FILTRATION RATE 87.9 ML/MIN; Potassium 3.5 mmol/L (3.5-5.1); Total Protein 6.8 g/dL (6.3-8.2)
[2025-01-11 15:07] LABS: Appearance Clear (Clear); Bilirubin Moderate (Negative); Blood Negative (Negative); Epithelial Cells Rare /HPF (None Seen); Glucose, Urine Negative (Negative); Ketones Trace (Negative); Leukocyte Esterase Small (Negative); Nitrite Negative (Negative); Ph 5.5 (4.6-8.0); Protein,Urine Dip 100 (Negative)
[2025-01-11 15:15] LABS: Bacteria Moderate /HPF (None Seen); Granular Casts 0-2 /LPF (None Seen)
[2025-01-11 15:21] LABS: BAND 2 % (0.0-2.0); Lymphocytes 6 % (19.3-51.7); Monocyte 4 % (4.7-12.5); Neutrophils 88 % (34.0-71.1); Total Cells Counted 100
[2025-01-11 15:22] LABS: Platelet Estimate NORMAL (NORMAL)
--- NOTE | 2025-01-11 16:29 | XRAY ---
CLINICAL HISTORY: llq pain COMPARISON: 11/04/2024 TECHNIQUE: CT of the abdomen and pelvis was performed with contrast, with the following protocol: axial images with, and reconstructed coronal and sagittal images. One of the following dose reduction techniques was utilized for this exam: Automated exposure control, adjustment of the mA and/or kV according to patient size, and use of iterative reconstruction. FINDINGS: Abdomen: Liver: Mildly enlarged liver, with few tiny liver cysts. Normal in shape and density. No focal lesions, or masses were identified. Hepatic vasculature and biliary ducts are unremarkable. Gallbladder and Biliary System: Nonvisualized gallbladder with metallic clips at the gallbladder bed. The common bile duct is normal in caliber without dilation. Pancreas: Pancreatic head, body, and tail are visualized and appear normal in size and density. No pancreatic masses or calcifications were noted. The pancreatic duct is not dilated. Spleen: Normal in size, shape, and density. No splenic lesions or masses were identified. Appendix: History of appendectomy. Kidneys and Adrenal Glands: Small right renal stone measuring 2 mm. Few left renal gravels. Bilateral renal small simple cortical cysts. Bosniak I. Right renal hydrocalyx/cyst measuring 5 cm. Mild bilateral perinephric stranding, more noted on the right side. Possibly chronic pyelonephritis. Both kidneys are normal in size, shape, and position. Cortical thickness is within normal limits. No renal hydronephrosis. Adrenal glands are unremarkable with no evidence of masses or hyperplasia. Pelvis: Urinary Bladder: Normal in contour and wall thickness. No intraluminal lesions identified. Multiple pelvic phleboliths. Uterus and ovaries: The uterus and ovaries are not clearly visualized. The patient mentioned a previous surgery for an ovarian cyst. Vagina: Normal in contour and wall thickness. Bowel: The visualized bowel loops are normal in caliber and appearance. No evidence of bowel obstruction or wall thickening. Dolicocolon and colonic diverticulosis. Possible cecal diverticuli, with mild cecal wall thickening and mild enhancement of the colonic wall With associated long segment of submucosal edema seen at the descending colon with pericolic fat stranding. . No collection. Possible mild inflammatory process. Please correlate clinically. Bones and Soft Tissues: Pelvic bones and soft tissues are unremarkable. No fractures or abnormal masses were identified. Lower thoracic and lumbar vertebral degenerative changes with osteophytes. Grade 1 anterolisthesis of L4 over L5 vertebrae. Minimal retrolisthesis of L1 over L2 vertebrae. Narrowed lower thoracic and lumbar intervertebral disc spaces with vacuum. Mild levoconvex lumbar scoliosis. Diffuse osteopenia of the scanned bones. Aortic atherosclerotic calcifications. Lung bases: Bilateral faint basal atelectasis. A well-defined calcified pulmonary nodule in the right lung base measuring 5 mm, likely a granuloma or hamartoma. No need for follow-up. IMPRESSION: 1. Cecal wall thickening and enhancement with an associated long segment of submucosal edema seen at the descending colon with pericolic fat stranding. No collection. 2. Suggesting Colitis. Please correlate clinically. Increased compared to prior study. 3. Mildly enlarged liver with few tiny liver cysts. Stable. 4. Dolicocolon and colonic diverticulosis. Stable. 5. Small right renal non obstructing stone measuring 2 mm. Stable. 6. A well-defined calcified pulmonary nodule in the right lung base measuring 5 mm, likely a granuloma or hamartoma. No need for follow-up. Stable. [facility] was called at [phone], Ext#[id number] at 03:22 AM ROTARY DRILL OPERATOR, 01/11/2025, and Elizabeth, the Nurse, was informed regarding the presence of Critical Medical Findings in this report. Electronically Signed by: Monique Blanchard MD. (01/11/2025 16:24:50 EDT) ADDENDUM: 01/11/2025 16:29:16 EDT Please Ignore the above Statement: [facility] was called at [phone], Ext#[id number] at 03:22 AM ROTARY DRILL OPERATOR, 01/11/2025, and Neeta, the RN, was informed regarding the presence of Critical Medical Findings in this report. Electronically Signed by: Monique Blanchard MD. (01/11/2025 16:29:16 EDT)
== END 2025-01-11 16:59 | disposition home or self-care (01) ==
LOC: ED 12:57
DX: K59.00 Constipation, unspecified (principal); N39.0 Urinary tract infection, site not specified; K62.89 Other specified diseases of anus and rectum; E78.5 Hyperlipidemia, unspecified; I10 Essential (primary) hypertension; E11.9 Type 2 diabetes mellitus without complications; Z79.4 Long term (current) use of insulin; Z79.899 Other long term (current) drug therapy
CPT/HCPCS: 36415; 74177; 80053; 81001; 85025; 87077; 87086; 87186; 99285